=== PATIENT | male | born 1960 | race Caucasian/White ===

== ENCOUNTER 2024-08-19 04:53 | Emergency (ER) | payer BC, OTHER, SELFPAY ==
[2024-08-19 04:56] VITALS: BP 162/99
[2024-08-19] MEDS: BENADRYL 50 MG PO (05:15)
[2024-08-19] MEDS: DELTASONE 50 MG PO (05:15)
--- NOTE | 2024-08-19 05:25 | ED.GENMED ---
History of Present Illness
General
Chief Complaint: Eye Problems
Source: patient
Exam Limitations: none
Time Seen by Provider: 08/19/24 05:02
Nursing documentation reviewed up to this point in time: agreed with
History of Present Illness
History of Present Illness:
This is a 64-year-old gentleman who complains of itchy left upper eyelid that began yesterday afternoon. He admits to intermittently rubbing and scratching at his left eye with resultant swelling about his left eye. He also has noted itching and
red raised rash left lateral trunk. He has had approximately 3 similar episodes sporadically over the past several years, most recently 2022. Thus far has not identified definitive cause for itchy rash.
Previously treated with a course of prednisone, topical steroid and hydroxyzine as needed for itch.
He did take 1 hydroxyzine last night.
He has not had a fever nor chills, no sore throat nor difficulty swallowing, no cough no shortness of breath, no abdominal pain.
He states he used a new razor yesterday and then itchy eye developed shortly after that. Other than this no other exposure to any new household products, no recent antibiotics. No recent travel.
Past History
Past History
ED Past Medical History: None
ED Past Surgical History: Orthopedic and Tonsilectomy
Social History
Tobacco: Smoker
Personal:
Living: with family
Employment: Retired
Family History
Family History: Other (Noncontributory)
Phy Exam
Physical Exam
Physical Exam:
GENERAL: 64-year-old gentleman appears his stated age, awake and alert, pleasant, appears in no acute distress.
EYE: Moderate periorbital edema without erythema about the left eye. Conjunctiva is clear. There is no chemosis nor drainage from the left eye. There is no rash. Pupils equal and reactive. anicteric
NECK: Supple, nontender, no meningismus, no significant adenopathy.
ENT: posterior pharynx is clear, oral mucosa is moist. TM clear b/l, nares patent.
CARDIAC: Regular rate and rhythm. no murmur.
LUNGS: Clear breath sounds bilaterally, no acute respiratory distress, no wheezes/rales/rhonchi
ABDOMEN: Soft, nondistended, without focal tenderness, no r/g, normoactive BS.
NEUROLOGICAL: Alert and oriented x3, no focal neuro deficits. Gait is pierre and steady.
SKIN: Warm and dry, normal color, skin intact. A patch of urticaria left lateral lower flank region.
MUSCULOSKELETAL: No C/C/E. peripheral pulses are full and equal b/l. No palpable tenderness.
PSYCH: Normal and appropriate interaction.
Course
Orders/Labs/Results
Orders:
Orders
08/19/24 05:11
Diphenhydramine [Benadryl] 50 mg PO NOW STA
Prednisone [Deltasone] 50 mg PO NOW STA
Vital Signs
Initial and Last Documented VS:
Initial Vital Signs
Temp Pulse Resp BP Pulse Ox
98 F 61 16 162/99 97
08/19/24 04:56 08/19/24 04:56 08/19/24 04:56 08/19/24 04:56 08/19/24 04:56
Last Documented Vital Signs
Temp Pulse Resp BP Pulse Ox
98 F 61 16 162/99 97
08/19/24 04:56 08/19/24 04:56 08/19/24 04:56 08/19/24 04:56 08/19/24 04:56
MDM/Problems Addressed
Differential Diagnosis Includes:
Patient presents with itchy periorbital swelling left eye as well as a patch of urticaria left lateral flank that appears contact allergy in nature.
No evidence of generalized allergic reaction nor angioedema.
Recommend a course of prednisone, Benadryl as well as topical steroid.
Discussed importance of avoiding rubbing his eye.
Prompt follow-up with PCP for recheck and follow-up with dermatology as well.
Patient has been evaluated by benzene operator in the past.
*Pulse Oximetry
Patient hypoxic: no
*Critical Care Note
Total Time (30-74mins, 75-104mins- exclusive of procedures): Not Applicable
ED Attending Note
-
Portions of this chart may have been created with voice recognition software.� Occasional wrong word or��sound alike� substitutions may have occurred due to the inherent limitations of voice recognition software.
Discharge Plan
Departure
Patient Disposition: Home (Routine Discharge)
Date of Disposition: 08/19/24
Time of Disposition: 05:30
Patient with high blood pressure during this ER visit?: Yes
Condition: Good
Discharge Problem:
Contact dermatitis, periorbital urticaria
Instructions: Contact dermatitis, BLOOD PRESSURE
Prescriptions:
New
prednisone 10 mg Tablet
See Rx Instructions .ROUTE .COMPLEX Qty: 30 0RF
Rx Instructions:
Take By Mouth:
40 mg daily x3 days, 30 mg daily x3 days,
20 mg daily x3 days, 10 mg daily x3 days.
mometasone 0.1 % cream
1 applic topical DAILY PRN (Reason: itch, rash) 14 Days Qty: 45 0RF
Zyrtec 10 mg capsule
10 mg PO DAILY Qty: 14 0RF
Activity Restrictions/Additional Instructions:
Avoid scratching/rubbing at your eye.
Follow-up with your primary care physician and/or benzene operator this week for recheck.
Interventions
Interventions:
*Risk Screen - Suicide Last Done: 08/19/24 04:56
*General Assessment Last Done: 08/19/24 04:56
*Neglect/Abuse Screening Last Done: 08/19/24 04:56
Discharge Date and Time
Print Language: CHINESE
== END 2024-08-19 05:55 | disposition home or self-care (01) ==
LOC: EMR 04:53
PROVIDERS: EMERGENCY PHYSICIAN Emergency Medicine
DX: L25.9 Unspecified contact dermatitis, unspecified cause (principal); L50.9 Urticaria, unspecified; F17.200 Nicotine dependence, unspecified, uncomplicated
CPT/HCPCS: 99282